=== PATIENT | male | born 1990 | race American Indian/Alaskan Native ===

== ENCOUNTER 2018-09-14 16:14 | Emergency (ER) | payer BC ==
[2018-09-14 16:21] VITALS: BP 139/81
--- NOTE | 2018-09-14 16:30 | Emergency Department Report ---
ED ENT HPI - General Chief complaint: Earache Stated complaint: SICKNESS Time Seen by Provider: 09/14/18 16:24 Source: patient Mode of arrival: Ambulatory Limitations: No Limitations - History of Present Illness MD complaint: ear pain -: Gradual Location: R ear Severity: mild Quality: dull Consistency: constant Improves with: none Worsens with: none Associated Symptoms: denies: gum swelling, toothache, sore throat, tinnitus, hearing loss, rhinorrhea - Related Data Previous Rx's Medication Instructions Recorded Last Taken Type Amoxicillin/Potassium Clav 1 each PO BID #20 tablet 09/14/18 Unknown Rx [Augmentin 875-125 Tablet] predniSONE [Deltasone] 20 mg PO BID #10 tablet 09/14/18 Unknown Rx ED Dental HPI - General Chief complaint: Earache Stated complaint: SICKNESS Time Seen by Provider: 09/14/18 16:24 Source: patient Mode of arrival: Ambulatory Limitations: No Limitations - Related Data Previous Rx's Medication Instructions Recorded Last Taken Type Amoxicillin/Potassium Clav 1 each PO BID #20 tablet 09/14/18 Unknown Rx [Augmentin 875-125 Tablet] predniSONE [Deltasone] 20 mg PO BID #10 tablet 09/14/18 Unknown Rx ED Review of Systems ROS: Stated complaint: SICKNESS Other details as noted in HPI Constitutional: denies: chills, fever Eyes: denies: eye pain, eye discharge, vision change ENT: ear pain. denies: throat pain Respiratory: denies: cough, shortness of breath, wheezing Cardiovascular: denies: chest pain, palpitations Endocrine: no symptoms reported Gastrointestinal: denies: abdominal pain, nausea, diarrhea Genitourinary: denies: urgency, dysuria Musculoskeletal: denies: back pain, joint swelling, arthralgia Skin: denies: rash, lesions Neurological: denies: headache, weakness, paresthesias Psychiatric: denies: anxiety, depression Hematological/Lymphatic: denies: easy bleeding, easy bruising ED Past Medical Hx - Past Medical History Previous Medical History?: No - Surgical History Past Surgical History?: No - Social History Smoking Status: Never Smoker Substance Use Type: None - Medications Home Medications: Home Medications Medication Instructions Recorded Confirmed Last Taken Type Amoxicillin/Potassium Clav 1 each PO BID #20 tablet 09/14/18 Unknown Rx [Augmentin 875-125 Tablet] predniSONE [Deltasone] 20 mg PO BID #10 tablet 09/14/18 Unknown Rx ED Physical Exam - General Limitations: No Limitations General appearance: alert, in no apparent distress - Head Head exam: Present: atraumatic, normocephalic - Eye Eye exam: Present: normal appearance, PERRL, EOMI - ENT ENT exam: Present: normal exam, mucous membranes moist, other (RIGHT EAR INJECTED TM WITH BULDGING TM AND EFFUSION. NO DISCHAGE) - Neck Neck exam: Present: normal inspection. Absent: lymphadenopathy, thyromegaly - Respiratory Respiratory exam: Present: normal lung sounds bilaterally. Absent: respiratory distress - Cardiovascular Cardiovascular Exam: Present: regular rate, normal rhythm. Absent: systolic mur mur, diastolic murmur, rubs, gallop - GI/Abdominal GI/Abdominal exam: Present: soft, normal bowel sounds - Rectal Rectal exam: Present: deferred - Extremities Exam Extremities exam: Present: normal inspection - Back Exam Back exam: Present: normal inspection - Neurological Exam Neurological exam: Present: alert, oriented X3 - Psychiatric Psychiatric exam: Present: normal affect, normal mood - Skin Skin exam: Present: warm, dry, intact, normal color. Absent: rash ED Course Vital Signs 09/14/18 16:20 Temperature 98.7 F Pulse Rate 88 Respiratory 18 Rate Blood Pressure 139/81 O2 Sat by Pulse 98 Oximetry Critical care attestation.: If time is entered above; I have spent that time in minutes in the direct care of this critically ill patient, excluding procedure time. ED Disposition Clinical Impression: Otitis media Disposition: DC-01 TO HOME OR SELFCARE Is pt being admited?: No Does the pt Need Aspirin: No Condition: Stable Instructions: Otitis Media (ED) Prescriptions: Amoxicillin/Potassium Clav [Augmentin 875-125 Tablet] 1 each PO BID #20 tablet predniSONE [Deltasone] 20 mg PO BID #10 tablet Referrals: [facility] [Provider Group] - 3-5 Days
== END 2018-09-14 16:51 | disposition home or self-care (01) ==
LOC: ED 16:14
DX: H66.91 Otitis media, unspecified, right ear (principal)
CPT/HCPCS: 99282

== ENCOUNTER 2019-02-21 23:50 | Emergency (ER) | payer SELFPAY ==
[2019-02-22] MEDS ORDERED: ONDANSETRON 4 MG ODT TAB ONE (01:59)
[2019-02-22] MEDS ORDERED: FAMOTIDINE 20 MG TAB ONE (01:59)
[2019-02-22] MEDS ORDERED: ALUM-MAG HYDROXIDE-SIMETHICONE 200-200-20MG/5ML ORAL LIQD 30 ML ONE (02:08)
[2019-02-22] MEDS ORDERED: SODIUM CHLORIDE 0.9% 1000 ML 1,000 ML IV ONE (02:53)
[2019-02-22] MEDS ORDERED: SODIUM CHLORIDE 0.9% 1000 ML 1,000 ML ONE (03:04)
[2019-02-22] MEDS ORDERED: ONDANSETRON 4 MG/2 ML INJ ONE (03:05)
--- NOTE | 2019-02-22 03:08 | XRay Report ---
CHEST 2 VIEWS INDICATION / CLINICAL INFORMATION: N/V EPIGASTRIC PAIN. COMPARISON: None available. FINDINGS: SUPPORT DEVICES: None. HEART / MEDIASTINUM: No significant abnormality. LUNGS / PLEURA: No significant pulmonary or pleural abnormality. No pneumothorax. ADDITIONAL FINDINGS: No significant additional findings. IMPRESSION: 1. No significant abnormality. Signer Name: Anahy Chavira MD Signed: 02/22/2019 3:04 AM Workstation Name: [id number]
[2019-02-22] MEDS ORDERED: ONDANSETRON 4 MG/2 ML INJ IV ONE (03:13)
[2019-02-22 04:15] LABS: Hematocrit 41.4 % (35.5-45.6); Hemoglobin 13.6 gm/dl (11.8-15.2); Mean Corpuscular HGB Conc 33 % (32-34); Mean Corpuscular Volume 86 fl (84-94); Platelet Count 233 K/mm3 (140-440); Red Blood Count 4.84 M/mm3 (3.65-5.03); Red Cell Distribution Width 14.1 % (13.2-15.2)
--- NOTE | 2019-02-22 04:19 | Emergency Department Report ---
ED N/V/D HPI - General Chief complaint: Nausea/Vomiting/Diarrhea Time Seen by Provider: 02/22/19 02:52 - History of Present Illness Initial comments: nausea and vomiting after drinking alcohol. no fever, mild epigastric burning. no melena, no hematochezia. complaint: nausea, vomiting -: Gradual, days(s) (2) Description of Vomiting: food contents Associated Abdominal Pain: No Radiation: none Severity: mild Quality: cramping Consistency: intermittent Improves with: none Worsens with: eating, bowel movement Associated Symptoms: myalgias - Related Data Previous Rx's Medication Instructions Recorded Last Taken Type Amoxicillin/Potassium Clav 1 each PO BID #20 tablet 09/14/18 Unknown Rx [Augmentin 875-125 Tablet] predniSONE [Deltasone] 20 mg PO BID #10 tablet 09/14/18 Unknown Rx Ondansetron [Zofran Odt] 4 mg PO Q8HR #15 tab.rapdis 02/22/19 Unknown Rx HYDROcodone/APAP 5-325 [[place] 1 each PO Q6HR PRN #10 tablet 03/04/19 Unknown Rx 5/325] Sulfamethoxazole/Trimethoprim 1 each PO BID #14 tablet 03/04/19 Unknown Rx [Bactrim DS TAB] Allergies Allergy/AdvReac Type Severity Reaction Status Date / Time No Known Allergies Allergy Verified 02/22/19 03:01 ED Review of Systems ROS: Stated complaint: Other details as noted in HPI Comment: All other systems reviewed and negative Cardiovascular: denies: chest pain Gastrointestinal: nausea, vomiting Musculoskeletal: denies: back pain ED Past Medical Hx - Social History Smoking Status: Never Smoker Substance Use Type: None - Medications Home Medications: Home Medications Medication Instructions Recorded Confirmed Last Taken Type Amoxicillin/Potassium Clav 1 each PO BID #20 tablet 09/14/18 Unknown Rx [Augmentin 875-125 Tablet] predniSONE [Deltasone] 20 mg PO BID #10 tablet 09/14/18 Unknown Rx Ondansetron [Zofran Odt] 4 mg PO Q8HR #15 tab.rapdis 02/22/19 Unknown Rx HYDROcodone/APAP 5-325 [[place] 1 each PO Q6HR PRN #10 tablet 03/04/19 Unknown Rx 5/325] Sulfamethoxazole/Trimethoprim 1 each PO BID #14 tablet 03/04/19 Unknown Rx [Bactrim DS TAB] ED Physical Exam - General Limitations: No Limitations General appearance: alert, in no apparent distress - Head Head exam: Present: atraumatic, normocephalic - Eye Eye exam: Present: normal appearance Pupils: Present: normal accommodation - ENT ENT exam: Present: normal exam - Neck Neck exam: Present: normal inspection - Respiratory Respiratory exam: Present: normal lung sounds bilaterally - Cardiovascular Cardiovascular Exam: Present: regular rate, normal rhythm - GI/Abdominal GI/Abdominal exam: Present: soft - Back Exam Back exam: Present: normal inspection - Neurological Exam Neurological exam: Present: alert, oriented X3, CN II-XII intact ED Course Vital Signs 02/22/19 04:29 Pulse Rate 79 Respiratory 16 Rate O2 Sat by Pulse 100 Oximetry ED Medical Decision Making - Lab Data Result diagrams: 02/22/19 Unknown Critical care attestation.: If time is entered above; I have spent that time in minutes in the direct care of this critically ill patient, excluding procedure time. ED Disposition Clinical Impression: Alcoholic gastritis Qualifiers: Chronicity: acute Gastritis bleeding: without bleeding Qualified Code(s): K29.20 - Alcoholic gastritis without bleeding Disposition: DC-01 TO HOME OR SELFCARE Is pt being admited?: No Does the pt Need Aspirin: No Condition: Stable Instructions: Gastritis (ED) Prescriptions: Ondansetron [Zofran Odt] 4 mg PO Q8HR #15 tab.rapdis Referrals: MICHAEL FERRERA MD [Primary Care Provider] - 3-5 Days
[2019-03-02] MEDS ORDERED: ONDANSETRON 4 MG ODT TAB PO ONE (08:23)
== END 2019-02-22 04:29 | disposition home or self-care (01) ==
LOC: ED 23:50
DX: R11.2 Nausea with vomiting, unspecified (principal)
CPT/HCPCS: 36415; 71046; 85027; J2405; J7030; 96361; 96374; Q0162

== ENCOUNTER 2019-03-04 18:44 | Emergency (ER) | payer SELFPAY ==
[2019-03-04] MEDS ORDERED: TETANUS,DIPH,PERTUSS(ACELL) VACCINE 0.5 ML SYRINGE IM ONE (18:55)
--- NOTE | 2019-03-04 18:55 | Event Note ---
ED Screening Note ED Screening Note: presents with left eyelid laceration through the eyelashes unsure last tetanus This initial assessment/diagnostic orders/clinical plan/treatment(s) is/are subject to change based on patients health status, clinical progression and re- assessment by fellow clinical providers in the ED. Further treatment and workup at subsequent clinical providers discretion. Patient/guardian urged not to elope from the ED as their condition may be serious if not clinically assessed and managed. Initial orders include: tetanus, MAIN evaluation
[2019-03-04] MEDS ORDERED: SULFAMETHOXAZOLE/TRIMETHOPRIM 800/160MG DS TAB PO ONE (19:32)
[2019-03-04] MEDS ORDERED: HYDROcodone/ACETAMINOPHEN 5-325 MG TAB PO ONE (19:33)
--- NOTE | 2019-03-04 20:06 | Emergency Department Report ---
HPI - General Chief Complaint: Eye Problems Time Seen by Provider: 03/04/19 18:53 - HPI HPI: 28-year-old -[place] male presents to the emergency department with complaint of pain around the left eye, pain to the left eyelid with a distal eyelid laceration, that occurred just prior to presentation when he was getting back into a car and a car door that slammed into his face. He denies any loss of consciousness. He denies any pain to the eyeball itself or any vision change. He is unsure of his last tetanus vaccination. No past medical history. He did not take anything for his symptoms prior to arrival today. ED Past Medical Hx - Past Medical History Previous Medical History?: No - Surgical History Past Surgical History?: No - Social History Smoking Status: Current Some Day Smoker Substance Use Type: Alcohol, Marijuana - Medications Home Medications: Home Medications Medication Instructions Recorded Confirmed Last Taken Type Amoxicillin/Potassium Clav 1 each PO BID #20 tablet 09/14/18 Unknown Rx [Augmentin 875-125 Tablet] predniSONE [Deltasone] 20 mg PO BID #10 tablet 09/14/18 Unknown Rx Ondansetron [Zofran Odt] 4 mg PO Q8HR #15 tab.rapdis 02/22/19 Unknown Rx HYDROcodone/APAP 5-325 [[place] 1 each PO Q6HR PRN #10 tablet 03/04/19 Unknown Rx 5/325] Sulfamethoxazole/Trimethoprim 1 each PO BID #14 tablet 03/04/19 Unknown Rx [Bactrim DS TAB] ED Review of Systems ROS: Stated complaint: LT EYE LAC Other details as noted in HPI Comment: All other systems reviewed and negative Constitutional: denies: chills, fever Eyes: other (eyelid laceration, periorbital pain). denies: eye pain, eye discharge, vision change ENT: denies: ear pain Respiratory: denies: shortness of breath Cardiovascular: denies: chest pain Gastrointestinal: denies: abdominal pain Musculoskeletal: denies: back pain Skin: other (eyelid laceration). denies: rash Neurological: denies: headache, weakness Physical Exam - Physical Exam Vital Signs: Vital Signs 03/04/19 19:40 Temperature 98.3 F Pulse Rate 113 H Respiratory 16 Rate Blood Pressure 128/79 [Left] O2 Sat by Pulse 97 Oximetry Physical Exam: GENERAL: The patient is well-developed well-nourished. HENT: Normocephalic. Atraumatic. Patient has moist mucous membranes. EYES: Extraocular motions are intact. Pupils equal reactive to light bilaterally. Visual acuity: 20/20 to the left eye, right eye, and with both eyes. There is some left periorbital tenderness to palpation but no edema, ecchymosis. NECK: Supple. Trachea is midline. CHEST/LUNGS: Clear to auscultation. There is no respiratory distress noted. HEART/CARDIOVASCULAR: Regular. There is no tachycardia. There is no murmur. ABDOMEN: There is no abdominal distention. SKIN: Skin is warm and dry. There is a small laceration and a skin avulsion to the distal, middle left upper eyelid the lid margin and is full thickness. NEURO: The patient is awake, alert, and oriented. The patient is cooperative. The patient has no focal neurologic deficits. Normal speech. MUSCULOSKELETAL: There is no tenderness or deformity. There is no limitation range of motion. There is no evidence of acute injury. ED Course Vital Signs 03/04/19 19:40 Temperature 98.3 F Pulse Rate 113 H Respiratory 16 Rate Blood Pressure 128/79 [Left] O2 Sat by Pulse 97 Oximetry - Consultations Consultation #1: I spoke with an flash developer, Dr. Hao Ching, regarding the lid laceration. He says the laceration can either be sutured for approximation or Steri-Strips can be used and the patient can follow up outpatient with either ophthalmology or plastic surgery. 03/05/19 00:39 ED Medical Decision Making - Radiology Data Radiology results: report reviewed CT MAXILLOFACIAL WITHOUT CONTRAST INDICATION / CLINICAL INFORMATION: facial trauma. TECHNIQUE: All CT scans at this location are performed using CT dose reduction for ALARA by means of automated exposure control. COMPARISON: None available. FINDINGS: FACIAL BONES: No fracture or other significant abnormality. PARANASAL SINUSES: No significant abnormality. ORBITS: No significant abnormality. VISUALIZED INTRACRANIAL STRUCTURES: No significant abnormality. ADDITIONAL FINDINGS: Multiple carious teeth, including right mandibular first molar with periapical lucencies. IMPRESSION: 1. No facial fracture. - Medical Decision Making This patient percents to the emergency department with a left upper eyelid laceration at the margin, as well as some periorbital pain, after he was hit in the face by a car door accidentally. He denies any eyeball pain, vision change. His visual acuity is perfect. A CT scan of the facial bones did not show any fracture or any other acute process. I spoke to the patient regarding the plan to either place a suture or to use Steri-Strips and the patient requested Steri- Strips to be used. When trying to place the Steri-Strips, it does appear that the laceration may actually be a partial skin avulsion with some mild volume lo ss. If the laceration were to be completely approximated, it appears that it would affect the anatomy and would pull some of the eyelid more medially to make up for the skin avulsion. However Steri-Strips were used with a very small amount of Dermabond and the laceration is more closely approximated. The patient was given some pain medication and a dose of antibiotics. He appears safe for discharge home at this time. He has been given multiple referrals for ophthalmology and plastic surgery, prescribed for pain medication and antibiotics, and he has been instructed to return to the emergency Department with any worsening of his symptoms or any acute distress. Critical Care Time: No Critical care attestation.: If time is entered above; I have spent that time in minutes in the direct care of this critically ill patient, excluding procedure time. ED Disposition Clinical Impression: Pain in periorbital region of left eye Eyelid laceration, left Qualifiers: Encounter type: initial encounter Qualified Code(s): S01.112A - Laceration without foreign body of left eyelid and periocular area, initial encounter Disposition: - TO HOME OR SELFCARE Is pt being admited?: No Condition: Stable Instructions: Laceration (ED) Additional Instructions: Please follow-up with either an flash developer or a plastic surgeon regarding your eyelid laceration. I am giving you referrals for both specialties. The Steri-Strips will fall off on their own in the next 2-3 days. Take the antibiotics as prescribed. Return to the emergency Department with any worsening of your symptoms or any acute distress. Prescriptions: Sulfamethoxazole/Trimethoprim [Bactrim DS TAB] 1 each PO BID #14 tablet HYDROcodone/APAP 5-325 [[place] 5/325] 1 each PO Q6HR PRN #10 tablet PRN Reason: Pain Referrals: JAVY CONNELL MD [Staff Physician] - 2-3 Days HAO CHING MD [Staff Physician] - 2-3 Days WORK,GRACIE Cartagena JR, MD [Staff Physician] - 2-3 Days Time of Disposition: 21:39
--- NOTE | 2019-03-04 20:23 | Cat Scan Report ---
CT MAXILLOFACIAL WITHOUT CONTRAST INDICATION / CLINICAL INFORMATION: facial trauma. TECHNIQUE: All CT scans at this location are performed using CT dose reduction for ALARA by means of automated e xposure control. COMPARISON: None available. FINDINGS: FACIAL BONES: No fracture or other significant abnormality. PARANASAL SINUSES: No significant abnormality. ORBITS: No significant abnormality. VISUALIZED INTRACRANIAL STRUCTURES: No significant abnormality. ADDITIONAL FINDINGS: Multiple carious teeth, including right mandibular first molar with periapical l ucencies. IMPRESSION: 1. No facial fracture. Signer Name: Naveed Toscano MD Signed: 03/04/2019 8:19 PM Workstation Name: [id number]
[2019-03-04 21:45] VITALS: BP 128/72
== END 2019-03-04 21:50 | disposition home or self-care (01) ==
LOC: ED 18:44
DX: S01.112A Laceration without foreign body of left eyelid and periocular area, initial encounter (principal); F17.200 Nicotine dependence, unspecified, uncomplicated; F12.10 Cannabis abuse, uncomplicated; F10.10 Alcohol abuse, uncomplicated; W22.8XXA Striking against or struck by other objects, initial encounter; Y93.89 Activity, other specified; Y92.89 Other specified places as the place of occurrence of the external cause; Y99.8 Other external cause status
CPT/HCPCS: 70486; 90471; 90715

== ENCOUNTER 2019-05-08 03:52 | Emergency (ER) | payer SELFPAY ==
[2019-05-08 04:08] VITALS: BP 137/89
--- NOTE | 2019-05-08 06:18 | Emergency Department Report ---
ED ENT HPI - General Chief complaint: Dental/Oral Stated complaint: TOOTHACHE Time Seen by Provider: 05/08/19 06:08 Source: patient Mode of arrival: Ambulatory Limitations: No Limitations - History of Present Illness Initial comments: 28-year-old Faro[place] male to the emergency department complaining of a two-month history of waxing and waning dental pain to the right side is worse with eating touching. Reports no fever, chills, sweats no hemoptysis no hematemesis no chest pain no palpitations no nausea or vomiting MD complaint: tooth pain -: Gradual Location: tooth # Severity: mild Quality: dull Consistency: constant Improves with: none Worsens with: none Context- Dental: history of dental caries, poor dental care Associated Symptoms: toothache - Related Data Previous Rx's Medication Instructions Recorded Last Taken Type Amoxicillin/Potassium Clav 1 each PO BID #20 tablet 09/14/18 Unknown Rx [Augmentin 875-125 Tablet] predniSONE [Deltasone] 20 mg PO BID #10 tablet 09/14/18 Unknown Rx Ondansetron [Zofran Odt] 4 mg PO Q8HR #15 tab.rapdis 02/22/19 Unknown Rx HYDROcodone/APAP 5-325 [[place] 1 each PO Q6HR PRN #10 tablet 03/04/19 Unknown Rx 5/325] Sulfamethoxazole/Trimethoprim 1 each PO BID #14 tablet 03/04/19 Unknown Rx [Bactrim DS TAB] Amoxicillin [Amoxicillin TAB] 875 mg PO BID #20 tablet 05/08/19 Unknown Rx Ketorolac [Toradol] 10 mg PO Q6H PRN #15 tablet 05/08/19 Unknown Rx Lidocaine Viscous 2% 15 ml MM Q4H #240 udc 05/08/19 Unknown Rx Allergies Allergy/AdvReac Type Severity Reaction Status Date / Time No Known Allergies Allergy Verified 02/22/19 03:01 ED Dental HPI - General Chief complaint: Dental/Oral Stated complaint: TOOTHACHE Time Seen by Provider: 05/08/19 06:08 Source: patient Mode of arrival: Ambulatory Limitations: No Limitations - Related Data Previous Rx's Medication Instructions Recorded Last Taken Type Amoxicillin/Potassium Clav 1 each PO BID #20 tablet 09/14/18 Unknown Rx [Augmentin 875-125 Tablet] predniSONE [Deltasone] 20 mg PO BID #10 tablet 09/14/18 Unknown Rx Ondansetron [Zofran Odt] 4 mg PO Q8HR #15 tab.rapdis 02/22/19 Unknown Rx HYDROcodone/APAP 5-325 [[place] 1 each PO Q6HR PRN #10 tablet 03/04/19 Unknown Rx 5/325] Sulfamethoxazole/Trimethoprim 1 each PO BID #14 tablet 03/04/19 Unknown Rx [Bactrim DS TAB] Amoxicillin [Amoxicillin TAB] 875 mg PO BID #20 tablet 05/08/19 Unknown Rx Ketorolac [Toradol] 10 mg PO Q6H PRN #15 tablet 05/08/19 Unknown Rx Lidocaine Viscous 2% 15 ml MM Q4H #240 udc 05/08/19 Unknown Rx Allergies Allergy/AdvReac Type Severity Reaction Status Date / Time No Known Allergies Allergy Verified 02/22/19 03:01 ED Review of Systems ROS: Stated complaint: TOOTHACHE Other details as noted in HPI Comment: All other systems reviewed and negative ED Past Medical Hx - Past Medical History Previous Medical History?: No - Surgical History Past Surgical History?: No - Social History Smoking Status: Never Smoker Substance Use Type: Alcohol - Medications Home Medications: Home Medications Medication Instructions Recorded Confirmed Last Taken Type Amoxicillin/Potassium Clav 1 each PO BID #20 tablet 09/14/18 Unknown Rx [Augmentin 875-125 Tablet] predniSONE [Deltasone] 20 mg PO BID #10 tablet 09/14/18 Unknown Rx Ondansetron [Zofran Odt] 4 mg PO Q8HR #15 tab.rapdis 02/22/19 Unknown Rx HYDROcodone/APAP 5-325 [[place] 1 each PO Q6HR PRN #10 tablet 03/04/19 Unknown Rx 5/325] Sulfamethoxazole/Trimethoprim 1 each PO BID #14 tablet 03/04/19 Unknown Rx [Bactrim DS TAB] Amoxicillin [Amoxicillin TAB] 875 mg PO BID #20 tablet 05/08/19 Unknown Rx Ketorolac [Toradol] 10 mg PO Q6H PRN #15 tablet 05/08/19 Unknown Rx Lidocaine Viscous 2% 15 ml MM Q4H #240 udc 05/08/19 Unknown Rx ED Physical Exam - General Limitations: No Limitations General appearance: alert, in no apparent distress - Head Head exam: Present: atraumatic, normocephalic - Eye Eye exam: Present: normal appearance - ENT ENT exam: Present: normal exam, normal orophraynx, mucous membranes moist, other (severe dental erosion and several caries throughout all lower cavity and bilateral molar has an impacted the did dentition with some adjacent gingival erythema and mild swelling.) - Neck Neck exam: Present: normal inspection - Respiratory Respiratory exam: Present: normal lung sounds bilaterally. Absent: respiratory distress - Cardiovascular Cardiovascular Exam: Present: regular rate, normal rhythm. Absent: systolic murmur, diastolic murmur, rubs, gallop - GI/Abdominal GI/Abdominal exam: Present: soft, normal bowel sounds - Rectal Rectal exam: Present: deferred - Extremities Exam Extremities exam: Present: normal inspection - Back Exam Back exam: Present: normal inspection - Neurological Exam Neurological exam: Present: alert, oriented X3 - Psychiatric Psychiatric exam: Present: normal affect, normal mood - Skin Skin exam: Present: warm, dry, intact, normal color. Absent: rash ED Course Vital Signs 05/08/19 04:06 Temperature 98.9 F Pulse Rate 92 H Respiratory 18 Rate Blood Pressure 137/89 O2 Sat by Pulse 100 Oximetry ED Medical Decision Making - Medical Decision Making Patient not immunosuppressed. No e/o tooth fracture, avulsion, or bleeding socket. No e/o RPA, CRISIS MANAGER, Ludwigs angina, periapical abscess. No e/o gingival hyperplasia or concern for drug reaction. Rx Ibuprofen. Defer ABX for dental pain alone with no evidence of infection. Disposition: Discharge home. Discussed return precautions for odontogenic infections and other dental pain emergencies. Will provide dental clinic list. Critical care attestation.: If time is entered above; I have spent that time in minutes in the direct care of this critically ill patient, excluding procedure time. ED Disposition Clinical Impression: Dentalgia, Dental infection Disposition: TO HOME OR SELFCARE Is pt being admited?: No Does the pt Need Aspirin: No Condition: Stable Instructions: Toothache (ED), Acute dental trauma (ED), Dental Caries (ED) Referrals: [facility] [Outside] - 3-5 Days
[2019-05-08] MEDS ORDERED: IBUPROFEN 800 MG TAB PO ONE (06:52)
[2019-05-08] MEDS ORDERED: IBUPROFEN 800 MG TAB ONE (06:52)
== END 2019-05-08 07:08 | disposition home or self-care (01) ==
LOC: ED 03:52
DX: K04.7 Periapical abscess without sinus (principal); Z79.899 Other long term (current) drug therapy

== ENCOUNTER 2019-06-06 07:48 | Emergency (ER) | payer SELFPAY ==
[2019-06-06 08:21] VITALS: BP 127/79
--- NOTE | 2019-06-06 10:10 | Emergency Department Report ---
ED ENT HPI - General Chief complaint: Dental/Oral Stated complaint: SEVERE TOOTHACHE Time Seen by Provider: 06/06/19 09:33 Source: patient Mode of arrival: Ambulatory Limitations: No Limitations - History of Present Illness Initial comments: This is a 28-year-old male nontoxic, well nourished in appearance, no acute signs of distress presents to the ED with c/o of left upper toothache 4 months. Patient denies following up with a dentist. Patient describes toothache as aching level of 8 out of 10. Patient denies any facial swelling. Patient aaron es any numbness, tingling, fever, chills, headache, stiff neck, abdominal pain, chest pain, shortness of breath. Patient denies any drug allergies or significant past medical history. MD complaint: tooth pain -: month(s) Location: tooth # 1 - pain here Severity: mild Severity scale (0 -10): 8 Quality: aching Consistency: constant Improves with: none Worsens with: none Context- Dental: history of dental caries, poor dental care Associated Symptoms: gum swelling, toothache. denies: fever, cough, pain with swallowing, sore throat, tinnitus, hearing loss, discharge from ear, rhinorrhea - Related Data Previous Rx's Medication Instructions Recorded Last Taken Type Amoxicillin/Potassium Clav 1 each PO BID #20 tablet 09/14/18 Unknown Rx [Augmentin 875-125 Tablet] predniSONE [Deltasone] 20 mg PO BID #10 tablet 09/14/18 Unknown Rx Ondansetron [Zofran Odt] 4 mg PO Q8HR #15 tab.rapdis 02/22/19 Unknown Rx HYDROcodone/APAP 5-325 [Osyka 1 each PO Q6HR PRN #10 tablet 03/04/19 Unknown Rx 5/325] Sulfamethoxazole/Trimethoprim 1 each PO BID #14 tablet 03/04/19 Unknown Rx [Bactrim DS TAB] Amoxicillin [Amoxicillin TAB] 875 mg PO BID #20 tablet 05/08/19 Unknown Rx Ketorolac [Toradol] 10 mg PO Q6H PRN #15 tablet 05/08/19 Unknown Rx Lidocaine Viscous 2% 15 ml MM Q4H #240 udc 05/08/19 Unknown Rx Allergies Allergy/AdvReac Type Severity Reaction Status Date / Time No Known Allergies Allergy Verified 02/22/19 03:01 ED Dental HPI - General Chief complaint: Dental/Oral Stated complaint: SEVERE TOOTHACHE Time Seen by Provider: 06/06/19 09:33 Source: patient Mode of arrival: Ambulatory Limitations: No Limitations - Related Data Previous Rx's Medication Instructions Recorded Last Taken Type Amoxicillin/Potassium Clav 1 each PO BID #20 tablet 09/14/18 Unknown Rx [Augmentin 875-125 Tablet] predniSONE [Deltasone] 20 mg PO BID #10 tablet 09/14/18 Unknown Rx Ondansetron [Zofran Odt] 4 mg PO Q8HR #15 tab.rapdis 02/22/19 Unknown Rx HYDROcodone/APAP 5-325 [Osyka 1 each PO Q6HR PRN #10 tablet 03/04/19 Unknown Rx 5/325] Sulfamethoxazole/Trimethoprim 1 each PO BID #14 tablet 03/04/19 Unknown Rx [Bactrim DS TAB] Amoxicillin [Amoxicillin TAB] 875 mg PO BID #20 tablet 05/08/19 Unknown Rx Ketorolac [Toradol] 10 mg PO Q6H PRN #15 tablet 05/08/19 Unknown Rx Lidocaine Viscous 2% 15 ml MM Q4H #240 udc 05/08/19 Unknown Rx Allergies Allergy/AdvReac Type Severity Reaction Status Date / Time No Known Allergies Allergy Verified 02/22/19 03:01 ED Review of Systems ROS: Stated complaint: SEVERE TOOTHACHE Other details as noted in HPI Constitutional: denies: chills, fever Eyes: denies: eye pain, eye discharge, vision change ENT: dental pain. denies: ear pain, throat pain Respiratory: denies: cough, shortness of breath, wheezing Cardiovascular: denies: chest pain, palpitations Endocrine: no symptoms reported Gastrointestinal: denies: abdominal pain, nausea, diarrhea Genitourinary: denies: urgency, dysuria Musculoskeletal: denies: back pain, joint swelling, arthralgia Skin: denies: rash, lesions Neurological: denies: headache, weakness, paresthesias Psychiatric: denies: anxiety, depression Hematological/Lymphatic: denies: easy bleeding, easy bruising ED Past Medical Hx - Past Medical History Previous Medical History?: No - Surgical History Past Surgical History?: No - Social History Smoking Status: Never Smoker Substance Use Type: Alcohol - Medications Home Medications: Home Medications Medication Instructions Recorded Confirmed Last Taken Type Amoxicillin/Potassium Clav 1 each PO BID #20 tablet 09/14/18 Unknown Rx [Augmentin 875-125 Tablet] predniSONE [Deltasone] 20 mg PO BID #10 tablet 09/14/18 Unknown Rx Ondansetron [Zofran Odt] 4 mg PO Q8HR #15 tab.rapdis 02/22/19 Unknown Rx HYDROcodone/APAP 5-325 [Osyka 1 each PO Q6HR PRN #10 tablet 03/04/19 Unknown Rx 5/325] Sulfamethoxazole/Trimethoprim 1 each PO BID #14 tablet 03/04/19 Unknown Rx [Bactrim DS TAB] Amoxicillin [Amoxicillin TAB] 875 mg PO BID #20 tablet 05/08/19 Unknown Rx Ketorolac [Toradol] 10 mg PO Q6H PRN #15 tablet 05/08/19 Unknown Rx Lidocaine Viscous 2% 15 ml MM Q4H #240 udc 05/08/19 Unknown Rx ED Physical Exam - General Limitations: No Limitations General appearance: alert, in no apparent distress - Head Head exam: Present: atraumatic, normocephalic - Expanded ENT Exam Expanded Ear exam: Present: normal external inspection Mouth exam: Present: normal external inspection, tongue normal. Absent: drooling, trismus, muffled voice Teeth exam: Present: fractured tooth #, dental tenderness #, other (uvula midline. no abscess) Throat exam: Positive: normal inspection. Negative: tonsillar erythema, tonsillomegaly, tonsillar exudate, R peritonsillar mass, L peritonsillar mass - Neck Neck exam: Present: normal inspection, full ROM - Extremities Exam Extremities exam: Present: full ROM - Back Exam Back exam: Present: full ROM - Neurological Exam Neurological exam: Present: alert, oriented X3, normal gait - Psychiatric Psychiatric exam: Present: normal affect, normal mood - Skin Skin exam: Present: warm, dry, intact, normal color. Absent: rash ED Course Vital Signs 06/06/19 08:20 Temperature 98.1 F Pulse Rate 77 Respiratory 18 Rate Blood Pressure 127/79 [Right] O2 Sat by Pulse 98 Oximetry - Reevaluation(s) Reevaluation #1: 06/06/19 10:09 Patient is speaking in full sentences with no signs of distress noted. ED Medical Decision Making - Medical Decision Making 28-year-old male that presents with chronic toothache. Patient is stable and was examined by me. Patient does not present with a medical emergency currently. There is no abscess or cellulitis noted. Patient d was given refer rals to see a dentist. At time of discharge, the patient does not seem toxic or ill in appearance. No acute signs of distress noted. Patient agrees to discharge treatment plan of care. No further questions noted by the patient. Critical care attestation.: If time is entered above; I have spent that time in minutes in the direct care of this critically ill patient, excluding procedure time. ED Disposition Clinical Impression: Toothache Disposition: Z-07 MED SCREENING EXAM-LEFT Is pt being admited?: No Does the pt Need Aspirin: No Condition: Stable Instructions: Toothache (ED) Additional Instructions: Follow-up with a dentist doctor in 3-5 days or if symptoms worsen and continue return to emergency room as soon as possible. Referrals: PRIMARY MD MADDIE [Primary Care Provider] - 3-5 Days RADHA CANO MD [Staff Physician] - 3-5 Days [facility] [Outside] - 3-5 Days
[2019-06-06] MEDS ORDERED: IBUPROFEN 800 MG TAB PO ONE (10:17)
== END 2019-06-06 10:18 | disposition left against medical advice (07) ==
LOC: ED 07:48
DX: K08.89 Other specified disorders of teeth and supporting structures (principal); Z79.899 Other long term (current) drug therapy
CPT/HCPCS: 99281